=== PATIENT | female | born 1965 | race Caucasian/White ===

== ENCOUNTER 2017-05-18 13:46 | Inpatient (IN) | payer BC ==
--- NOTE | 2017-05-18 15:12 | ER Document Report ---
ED Medical Screen (RME) - General Chief Complaint: Abdominal Pain Stated Complaint: ABDOMINAL PAIN Time Seen by Provider: 05/18/17 15:06 Notes: Patient presents complaining of LLQ abdominal pain on Tuesday, cramping at the end of her cycle, constant. Gradually worse in severity and now including suprapubic area. Tuesday with cold symptoms, fever and abdominal pain started tuesday. LMP: this past week. regular. Denies using BC, has had a tubal ligation. still has her appendix. + nausea - vomiting, diarrhea, constipation LBM: today but less than normal PCP: Gina. I have greeted and performed a rapid initial assessment of this patient. A comprehensive ED assessment and evaluation of the patient, analysis of test results and completion of the medical decision making process will be conducted by additional ED providers. TRAVEL OUTSIDE OF THE [place] IN LAST 30 DAYS: No - Related Data Allergies/Adverse Reactions: No Known Allergies Allergy (Unverified 05/18/17 15:06) Physical Exam - Vital signs Vitals: Temp Pulse Resp BP Pulse Ox 101.4 F H 124 H 20 124/70 96 05/18/17 13:55 05/18/17 13:55 05/18/17 13:55 05/18/17 13:55 05/18/17 13:55 - Notes Notes: PHYSICAL EXAM GENERAL: Alert, interacts well. HEAD: Normocephalic, atraumatic. LUNGS: Clear to auscultation bilaterally, no wheezes, rales, or rhonchi. No respiratory distress. HEART: Regular rate and rhythm. No murmurs, gallops, or rubs. ABDOMEN: Soft, mildly distended, LLQ tenderess. No guarding, rebound, or rigidity.. Bowel sounds present in all 4 quadrants. EXTREMITIES: Moves all 4 extremities spontaneously. No edema, radial and dorsalis pedis pulses 2/4 bilaterally. No cyanosis. NEUROLOGICAL: Alert and oriented x4. Normal speech. PSYCH: Normal affect, normal mood. SKIN: Warm, dry, normal turgor. No rashes or lesions noted. Course - Vital Signs Vital signs: Temp Pulse Resp BP Pulse Ox 101.4 F H 124 H 20 124/70 96 05/18/17 13:55 05/18/17 13:55 05/18/17 13:55 05/18/17 13:55 05/18/17 13:55
[2017-05-18 15:48] LABS: HEMATOCRIT 34.4 % (36.0-47.0); HEMOGLOBIN 11.7 g/dL (12.0-15.5); MEAN CORPUSCULAR HGB CONC 33.9 g/dL (32.0-36.0); MEAN CORPUSCULAR VOLUME 86 fl (80-97); PLATELET COUNT 375 10^3/uL (150-450); RED BLOOD COUNT 4.02 10^6/uL (3.72-5.28); RED CELL DISTRIBUTION WIDTH 13.8 % (11.5-14.0); WHITE BLOOD COUNT 19.1 10^3/uL (4.0-10.5)
[2017-05-18 15:50] LABS: AMORPHOUS SEDIMENT,URINE TRACE /HPF; APPEARANCE,URINE SLIGHTLY-CLOUDY; BILIRUBIN,URINE NEGATIVE (NEGATIVE); COLOR,URINE YELLOW; GLUCOSE, URINE NEGATIVE (NEGATIVE); KETONES,URINE NEGATIVE (NEGATIVE); LEUKOCYTE ESTERASE,URINE MODERATE (NEGATIVE); NITRITE,URINE NEGATIVE (NEGATIVE); PROTEIN,URINE NEGATIVE (NEGATIVE); URINE SPECIFIC GRAVITY 1.002
--- NOTE | 2017-05-18 15:59 | RADIOLOGY REPORT (SQ) ---
EXAM DESCRIPTION: ACUTE ABDOMEN SERIES COMPLETED DATE/TIME: 05/18/2017 3:44 pm REASON FOR STUDY: abdominal pain and distension COMPARISON: None. NUMBER OF VIEWS: Three views. TECHNIQUE: Frontal chest, supine abdomen and upright abdomen radiographic images acquired. LIMITATIONS: None. FINDINGS: CHEST: Lungs clear of infiltrates. Cardiac silhouette size, shirley, bony structures unremar kable. FREE AIR: None. No abnormal gas collections. BOWEL GAS PATTERN: Nonobstructive bowel gas pattern. There is air and fluid in the colon. CALCIFICATIONS: Calcified pelvic phleboliths. HARDWARE: None in the abdomen. SOFT TISSUES: No gross mass or suggestion of organomegaly. BONES: No acute fracture. No worrisome bone lesions. OTHER: No other significant finding. IMPRESSION: NO RADIOGRAPHIC EVIDENCE FOR ACUTE ABDOMINAL DISEASE. TECHNICAL DOCUMENTATION: JOB ID: [id number] [employer]- All Rights Reserved
[2017-05-18 16:07] LABS: ALANINE AMINOTRANSFERASE 184 U/L (9-52); ALBUMIN 3.8 g/dL (3.5-5.0); ALKALINE PHOSPHATASE 188 U/L (38-126); ANION GAP 10 (5-19); ASPARTATE AMINO TRANSFERASE 114 U/L (14-36); BILIRUBIN,DIRECT 0.2 mg/dL (0.0-0.4); BILIRUBIN,TOTAL 0.4 mg/dL (0.2-1.3); BLOOD UREA NITROGEN 7 mg/dL (7-20); CALCIUM 9.7 mg/dL (8.4-10.2); CARBON DIOXIDE 28 mmol/L (22-30); CHLORIDE 101 mmol/L (98-107); GLUCOSE 115 mg/dL (75-110); LIPASE 32.5 U/L (23-300); POTASSIUM 3.9 mmol/L (3.6-5.0); SODIUM 138.6 mmol/L (137-145); TOTAL PROTEIN 6.3 g/dL (6.3-8.2)
[2017-05-18 16:11] LABS: ABSOLUTE LYMPHOCYTES# (MANUAL) 1.1 10^3/uL (0.5-4.7); ABSOLUTE MONOCYTES # (MANUAL) 0.8 10^3/uL (0.1-1.4); BASOPHILS % (MANUAL) 0 % (0-2); EOSINOPHILS % (MANUAL) 1 % (0-6); LYMPHOCYTES % (MANUAL) 6 % (13-45); MONOCYTES % (MANUAL) 4 % (3-13); SEGMENTED NEUTROPHILS % (MAN) 89 % (42-78); TOTAL CELLS COUNTED 100
[2017-05-18 16:12] LABS: PLATELET COMMENT ADEQUATE; TOXIC GRANULATION SLIGHT
--- NOTE | 2017-05-18 16:28 | ER Document Report ---
ED General <PRESTON RODAS - Last Filed: 05/19/17 08:53> - General TRAVEL OUTSIDE OF THE [place] IN LAST 30 DAYS: No <DAMION ESQUIVEL - Last Filed: 05/19/17 09:47> - General Chief Complaint: Abdominal Pain Stated Complaint: ABDOMINAL PAIN Time Seen by Provider: 05/18/17 15:06 Notes: Patient is a 51-year-old female presents emergency department with chief complaint of left lower quadrant abdominal pain with sudden onset 3 days ago. Patient states that initially felt like a initial pinprick sensation that has progressed to a constant dull ache with associated cramps. She states that it was in her left lower quadrant is now suprapubic and occasionally in her right lower quadrant. She denies any fever, chills. She admits to occasional nausea without any vomiting. She denies any pyuria, hematuria but admits to pressure with urination. She denies any vaginal discharge, pain with intercourse but also states that she has not had intercourse since the symptoms started. She states that she is on the tail end of her menstrual period. States that she is sexually active with her only, they do not use protection, she denies any concern for STDs. She denies any history of significant pelvic pathology such as endometriosis, PCOS , Diverticulitis, colitis, ulcerative colitis, IBS ROS significant for upper respiratory infection symptoms that started on Tuesday. She states that she has had mild low-grade fevers since then with the onset of abdominal pain this weekend. (DAMION ESQUIVEL) - Related Data Allergies/Adverse Reactions: No Known Allergies Allergy (Unverified 05/18/17 15:06) Past Medical History - Social History Smoking Status: Unknown if Ever Smoked <PRESTON RODAS - Last Filed: 05/19/17 08:53> - Social History Smoking Status: Never Smoker Chew tobacco use (# tins/day): No Frequency of alcohol use: None Drug Abuse: None Family History: Reviewed & Not Pertinent Patient has suicidal ideation: No Patient has homicidal ideation: No Renal/ Medical History: Denies: Hx Peritoneal Dialysis Past Surgical History: Reports: Hx Tubal Ligation <DAMION ESQUIVEL - Last Filed: 05/19/17 09:47> Review of Systems - Review of Systems Constitutional: See HPI Cardiovascular: No symptoms reported Respiratory: No symptoms reported Gastrointestinal: See HPI Genitourinary: See HPI Female Genitourinary: See HPI Musculoskeletal: No symptoms reported -: Yes All other systems reviewed and negative <DAMION ESQUIVEL - Last Filed: 05/19/17 09:47> Physical Exam <PRESTON RODAS - Last Filed: 05/19/17 08:53> <DAMION ESQUIVEL - Last Filed: 05/19/17 09:47> - Vital signs Vitals: Temp Pulse Resp BP Pulse Ox 101.4 F H 124 H 20 124/70 96 05/18/17 13:55 05/18/17 13:55 05/18/17 13:55 05/18/17 13:55 05/18/17 13:55 - Notes Notes: PHYSICAL EXAM GENERAL: Alert, interacts well. HEAD: Normocephalic, atraumatic. NECK: Full range of motion. Supple. Trachea midline. LUNGS: Clear to auscultation bilaterally, no wheezes, rales, or rhonchi. No respiratory distress. HEART: Regular rate and rhythm. No murmurs, gallops, or rubs. ABDOMEN: Soft, nondistended, nontender. No guarding, rebound, or rigidity.. Bowel sounds present in all 4 quadrants. FEMALE : Normal external exam. No evidence of lesions, lacerations, bruising or vesicles. Speculum exam normal cervix closed. No evidence of vaginal discharge with odor. No evidence of lesions. No vaginal bleeding. Bimanual exam with mild cervical motion tenderness. No adnexal mass or adnexal tenderness. EXTREMITIES: Moves all 4 extremities spontaneously. No edema, radial and dorsalis pedis pulses 2/4 bilaterally. No cyanosis. NEUROLOGICAL: Alert and oriented x4. Normal speech. PSYCH: Normal affect, normal mood. SKIN: Warm, dry, normal turgor. No rashes or lesions noted. (DAMION ESQUIVEL) Course - Laboratory Result Diagrams: 05/19/17 06:48 05/19/17 06:48 <PRESTON RODAS - Last Filed: 05/19/17 08:53> - Laboratory Result Diagrams: 05/19/17 06:48 05/19/17 06:48 - Diagnostic Test Radiology reviewed: Image reviewed, Reports reviewed <DAMION ESQUIVEL - Last Filed: 05/19/17 09:47> - Re-evaluation Re-evalutation: 05/19/17 08:54 Ultrasound results reviewed, labs and ultrasound and discussed with Dr. Reid who stated she would go over the ultrasound and CT and then call back because she did not believe that this was a pelvic infection she thought it was more of a intestinal infection. When she called back she stated that she and the surgeon had consulted and they would admit the patient started on antibiotics and then have the patient rescanned as she did not think this was a pelvic infection. Patient was admitted to second floor to Dr. Reid's services. Patient and were informed of this decision and they were accepted at this disposition. They stated they did not feel that she could go home feeling the way she did. (PRESTON RODAS) 05/18/17 16:30 Patient is a 51-year-old female who is hemodynamically stable, no acute distress and afebrile. Repeat temp down from initial taking triage. Heart rate initially responded well to IV bolus. Patient resting comfortably and only admits to pain with certain movements and palpation. White blood cell count elevated at 19,000. No evidence of UTI noted on urinalysis. Repeat abdominal exam still shows tenderness in the left lower quadrant will send for CT abdomen and pelvis with IV contrast. 05/18/17 17:45 CT does not show any evidence of diverticulitis, colitis. No evidence of appendicitis. Evidence of free fluid and inflammation around the broad ligament in the left adnexa. Correlated with physical exam with concern for PID. Wet mount and GC were sent. Patient will be sent for a transvaginal ultrasound to rule out for any tubo-ovarian abscess. 05/18/17 18:50 Patient still pending for ultrasound. Sign out to Lynda Rodas EMPLOYMENT OFFICE CLERK who will review ultrasound and dispel accordingly. Patient remains n.p.o. at this time and remaining comfortable. (DAMION ESQUIVEL) - Vital Signs Vital signs: Temp Pulse Resp BP Pulse Ox 98.9 F 102 H 18 122/70 98 05/19/17 08:29 05/19/17 08:29 05/19/17 08:29 05/19/17 08:29 05/19/17 08:29 - Laboratory Laboratory results interpreted by me: 05/18/17 05/18/17 05/18/17 15:30 15:30 15:30 WBC 19.1 H Hgb 11.7 L Hct 34.4 L Seg Neuts % (Manual) 89 H Lymphocytes % (Manual) 6 L Abs Neuts (Manual) 17.0 H Glucose 115 H AST 114 H ALT 184 H Alkaline Phosphatase 188 H Urine Blood SMALL H Urine Urobilinogen 2.0 H Ur Leukocyte Esterase MODERATE H Discharge - Discharge Admitting Provider: [facility] Admitted: Post <PRESTON RODAS - Last Filed: 05/19/17 08:53> <DAMION ESQUIVEL - Last Filed: 05/19/17 09:47> - Discharge Clinical Impression: Pelvic pain Fever Qualifiers: Fever type: unspecified Qualified Code(s): R50.9 - Fever, unspecified Disposition: ADMITTED INPATIENT
[2017-05-18] MEDS: NORMAL SALINE 1000 ML 1,000 ML IV PRN ×3 (17:20→23:17)
--- NOTE | 2017-05-18 17:22 | RADIOLOGY REPORT (SQ) ---
EXAM DESCRIPTION: CT ABD/PELVIS WITH IV ONLY COMPLETED DATE/TIME: 05/18/2017 5:02 pm REASON FOR STUDY: LLQ pain, fever, elevated WBC COMPARISON: None. TECHNIQUE: CT scan of the abdomen and pelvis performed using helical scanning technique with dynamic intravenous contrast injection. No oral contrast. Images reviewed with lung, soft tissue, and bone windows. Reconstructed coronal and sagittal MPR images reviewed. Delayed images for evaluation of the urinary system also acquired. All images stored on PACS. All CT scanners at this facility use dose modulation, iterative reconstruction, and/or weight based d osing when appropriate to reduce radiation dose to as low as reasonably achievable (ALARA). [facility]: Dose Right [facility]: CareDose [facility]: Dose Right [facility]: Teradose 4D [facility]: Tallyfy CONTRAST TYPE AND DOSE: contrast/concentration: Isovue 370.00 mg/ml; Total Contrast Delivered: 72.0 ml; Total Saline Delivered: 36.0 ml RENAL FUNCTION: Creatinine 0.73 RADIATION DOSE: CT Rad equipment meets quality standard of care and radiation dose reduction techniq ues were employed. CTDIvol: 6.1 - 8.4 mGy. DLP: 716 mGy-cm.. LIMITATIONS: None. FINDINGS: LOWER CHEST: No significant findings. No nodules or infiltrates. LIVER: Normal size. No masses. No dilated ducts. SPLEEN: Normal size. No focal lesions. PANCREAS: No masses. No significant calcifications. No adjacent inflammation or peripancreatic fluid collections. Pancreatic duct not dilated. GALLBLADDER: No identified stones by CT criteria. No inflammatory changes to suggest cholecystitis. ADRENAL GLANDS: No significant masses or asymmetry. RIGHT KIDNEY AND URETER: No solid masses. No significant calcifications. No hydronephrosis or hyd roureter. LEFT KIDNEY AND URETER: No solid masses. No significant calcifications. No hydronephrosis or hydr oureter. AORTA AND VESSELS: No aneurysm. No dissection. Renal arteries, SMA, celiac without stenosis. RETROPERITONEUM: No retroperitoneal adenopathy, hemorrhage or masses. BOWEL AND PERITONEAL CAVITY: No masses or inflammatory changes. No free fluid or peritoneal masses. APPENDIX: Normal. PELVIS: There are edematous or inflammatory changes adjacent to the broad ligament on the left. Poss ibility of PID should be considered in light of the negative HCG. Other etiologies including endomet riosis cannot be excluded. A small amount of free fluid is identified in the cul-de-sac. Pelvic ult rasound may be of value for further evaluation. ABDOMINAL WALL: No masses. No hernias. BONES: No significant or acute findings. OTHER: No other significant finding. IMPRESSION: There are edematous or inflammatory changes adjacent to the broad ligament on the left a s noted above. The possibility of PID should be considered in light of the negative HCG. Other etio logies including endometriosis cannot be excluded. Small amount of free fluid is identified in the c ul-de-sac. Clinical correlation is recommended. Pelvic ultrasound may be of value for further evalu ation. Other findings as noted above TECHNICAL DOCUMENTATION: JOB ID: [id number] Quality ID # [id number]: Final reports with documentation of one or more dose reduction techniques (e.g., Au tomated exposure control, adjustment of the mA and/or kV according to patient size, use of iterative reconstruction technique) 2010 [employer]- All Rights Reserved
[2017-05-18 18:16] LABS: RBCS (WET MOUNT) RARE RBCS SEEN; T.VAGINALIS (WET MOUNT) NO TRICHOMONAS SEEN; WBCS (WET MOUNT) 2+ WBCS SEEN; YEAST (WET MOUNT) NO YEAST SEEN
[2017-05-18 18:17] LABS: BACTERIA (WET MOUNT) 3+ BACTERIA SEEN
[2017-05-18] MEDS ORDERED: NORMAL SALINE 1000 ML 1,000 ML IV ONE (18:51)
[2017-05-18] MEDS ORDERED: KETOROLAC TROMETHAMINE INJ/PF 30 MG/1 ML SDV IV ONE (18:51)
[2017-05-18 19:49] LABS: CHLAM PCR NOT DETECTED (NOT DETECT); GON PCR NOT DETECTED (NOT DETECT)
--- NOTE | 2017-05-18 19:50 | RADIOLOGY REPORT (SQ) ---
EXAM DESCRIPTION: U/S NON OB PEL TV W/DOPPLER COMPLETED DATE/TIME: 05/18/2017 7:36 pm REASON FOR STUDY: left adenexa pain, elevated WBC COMPARISON: None. TECHNIQUE: Dynamic and static grayscale images acquired of the pelvis via transvaginal approach and recorded on PACS. Additional selected color Doppler and spectral images recorded. LIMITATIONS: None. FINDINGS: UTERUS: Contour normal. No mass. ENDOMETRIAL STRIPE: No focal or generalized thickening. No masses. CERVIX: No nabothian cysts. RIGHT OVARY: Ovary not visualized. RIGHT OVARY DOPPLER: Ovary not visualized. LEFT OVARY: Ovary not visualized. LEFT OVARY DOPPLER: Ovary not visualized. FREE FLUID: Free fluid with septations in the left adnexa. OTHER: No other significant finding. MEASUREMENTS: UTERUS: 8.5 x 5.0 x 6.1 cm ENDOMETRIAL STRIPE: 3.5 mm RIGHT OVARY: Not visualized. LEFT OVARY: Not visualized. IMPRESSION: Inflammatory changes in the left adnexa. Main differentials are pelvic inflammatory dis ease, much less likely inflammation associated with gynecologic malignancy. TECHNICAL DOCUMENTATION: JOB ID: [id number]- All Rights Reserved
[2017-05-18] MEDS ORDERED: CEFTRIAXONE 1 GM/D5W RTU 1 GM/50 ML RTUPB IV ONE (20:26)
--- NOTE | 2017-05-18 21:05 | RADIOLOGY REPORT (SQ) ---
EXAM DESCRIPTION: CHEST PA/LAT COMPLETED DATE/TIME: 05/18/2017 8:41 pm REASON FOR STUDY: cough fever COMPARISON: None. EXAM PARAMETERS: NUMBER OF VIEWS: two views TECHNIQUE: Digital Frontal and Lateral radiographic views of the chest acquired. RADIATION DOSE: NA LIMITATIONS: none FINDINGS: LUNGS AND PLEURA: No opacities, masses or pneumothorax. No pleural effusion. MEDIASTINUM AND HILAR STRUCTURES: No masses or contour abnormalities. HEART AND VASCULAR STRUCTURES: Heart normal size. No evidence for failure. BONES: No acute findings. HARDWARE: None in the chest. OTHER: No other significant finding. IMPRESSION: NO SIGNIFICANT RADIOGRAPHIC FINDING IN THE CHEST. TECHNICAL DOCUMENTATION: JOB ID: [id number] [employer]- All Rights Reserved
[2017-05-18] MEDS ORDERED: ONDANSETRON 4 MG TAB.RAPDIS PO PRN (21:23)
[2017-05-18] MEDS ORDERED: ZOLPIDEM TARTRATE 5 MG TABLET PO PRN (21:23)
[2017-05-18] MEDS ORDERED: MAG HYDROX/AL HYDROX/SIMETH SUSP 30 ML UDCUP PO PRN (21:23)
[2017-05-18] MEDS ORDERED: CEFTRIAXONE SODIUM 1,000 MG in NORMAL SALINE 50 ML IV ONE (21:30)
[2017-05-18] MEDS: RINGERS SOLUTION,LACTATED 1,000 ML IV PRN (23:34)
[2017-05-19] MEDS ORDERED: PIPERACILLIN/TAZOBACTAM 3.375 GM VIAL IV SCH
[2017-05-19] MEDS: PIPERACILLIN SODIUM/TAZOBACTAM 3.375 GM in NORMAL SALINE 100 ML IV SCH ×4 (00:23→17:20)
[2017-05-19] MEDS: RINGERS SOLUTION,LACTATED 1,000 ML IV PRN ×3 (00:25→21:16)
[2017-05-19] MEDS ORDERED: INFLUENZA ADLT QUAD (36MOS+) 2017-18 VAC 0.5 ML SYR IM PRN (00:59)
[2017-05-19] MEDS ORDERED: OXYCODONE-ACETAMINOPHEN 5-325 MG TABLET PO PRN ×2 (04:57)
[2017-05-19] MEDS ORDERED: ACETAMINOPHEN 325 MG TABLET PO PRN (04:58)
[2017-05-19] MEDS ORDERED: IBUPROFEN 800 MG TABLET PO PRN (04:58)
[2017-05-19] MEDS ORDERED: ACETAMINOPHEN 325 MG TABLET ONE (05:03)
--- NOTE | 2017-05-19 06:17 | PDOC H&P ---
History of Present Illness Admission Date/PCP: 05/18/17 22:19 ANA GONZALEZ MD Patient complains of: Lower abdominal pain, fever History of Present Illness: MILO CASTRO 51-year-old female presented to the ER with chief complaint of left lower quadrant abdominal pain with sudden onset 3 days ago. Patient states that initially felt like a initial pinprick sensation that has progressed to a constant dull ache with associated cramps and extends from LLQ across her lower pelvis to the right. She denies any fever, chills but was noted to be febrile in the ER. She admits to occasional nausea without any vomiting. She has had one episode of diarrhea. She denies BRBPR. She denies any pyuria, hematuria but admits to pressure with urination. She denies any vaginal discharge, pain with intercourse but also states that she has not had intercourse since the symptoms started. She states that she just finished her menstrual period. States that she is sexually active with her only, they do not use protection, she denies any concern for STDs. She denies non vaginal intercourse. She denies any history of significant pelvic pathology such as endometriosis, PCOS , Diverticulitis, colitis, ulcerative colitis, IBS. ROS significant for upper respiratory infection symptoms that started on Tuesday. She states that she has had mild low-grade fevers since then with the onset of abdominal pain this weekend. Past Medical History Gynecological Infection: No 1 Delivery: Other - poss extopic pregnany. Told she was "minutes and a blood vessel burst" Past Surgical History Past Surgical History: Reports: Tubal Ligation, Other - surgery for ectopic ("minutes with burst blood vessel") Social History Information Source: Patient Lives with: Family Smoking Status: Never Smoker Frequency of Alcohol Use: Rare Hx Recreational Drug Use: No Drugs: None Hx Prescription Drug Abuse: No - Advance Directive Resuscitation Status: Full Code Family History Family History: Reviewed & Not Pertinent Parental Family History Reviewed: No Children Family History Reviewed: NA Sibling(s) Family History Reviewed.: NA Medication/Allergy Home Medications: No Home Medications 05/19/17 Allergies/Adverse Reactions: No Known Allergies Allergy (Unverified 05/18/17 15:06) Review of Systems Constitutional: ABSENT: chills, fatigue, fever(s), weakness, weight gain, weight loss Gastrointestinal: PRESENT: abdominal pain, bloating, diarrhea, nausea. ABSENT: coffee ground emesis, constipation, heartburn, hematemesis, hematochezia, vomiting Genitourinary: ABSENT: dysuria, hematuria Musculoskeletal: ABSENT: joint swelling Integumentary: ABSENT: rash, wounds Neurological: ABSENT: abnormal gait, abnormal speech, confusion, dizziness, focal weakness, syncope Psychiatric: ABSENT: anxiety, depression, homidical ideation, suicidal ideation Endocrine: ABSENT: cold intolerance, heat intolerance, polydipsia, polyuria Hematologic/Lymphatic: ABSENT: easy bleeding, easy bruising Physical Exam - Physical Exam Vital Signs: Temp Pulse Resp BP Pulse Ox 101.4 F H 124 H 20 124/70 96 05/18/17 13:55 05/18/17 13:55 05/18/17 13:55 05/18/17 13:55 05/18/17 13:55 General appearance: PRESENT: no acute distress, cooperative Head exam: PRESENT: atraumatic, normocephalic Respiratory exam: PRESENT: clear to auscultation mirian, symmetrical, unlabored Cardiovascular exam: PRESENT: +S1, +S2, tachycardia Pulses: PRESENT: normal dorsalis pedis pul, +2 pedal pulses bilateral Vascular exam: PRESENT: normal capillary refill GI/Abdominal exam: PRESENT: guarding, normal bowel sounds, soft, tenderness - LLQ greater than right. Also ttp bilateral upper quadrants. ABSENT: distended , mass, organolmegaly, rebound Rectal exam: PRESENT: deferred Extremities exam: PRESENT: full ROM. ABSENT: calf tenderness, clubbing, pedal edema Neurological exam: PRESENT: alert, awake, oriented to person, oriented to place , oriented to time, oriented to situation, CN II-XII grossly intact. ABSENT: motor sensory deficit Psychiatric exam: PRESENT: appropriate affect, normal mood. ABSENT: homicidal ideation, suicidal ideation Skin exam: PRESENT: dry, intact, warm. ABSENT: cyanosis, rash Result Impressions: Acute Abdomen Series 05/18/17 15:18 IMPRESSION: NO RADIOGRAPHIC EVIDENCE FOR ACUTE ABDOMINAL DISEASE. Abdomen/Pelvis CT 05/18/17 16:27 IMPRESSION: There are edematous or inflammatory changes adjacent to the broad ligament on the left as noted above. The possibility of PID should be considered in light of the negative HCG. Other etiologies including endometriosis cannot be excluded. Small amount of free fluid is identified in the cul-de-sac. Clinical correlation is recommended. Pelvic ultrasound may be of value for further evaluation. Other findings as noted above Transvaginal US 05/18/17 17:49 IMPRESSION: Inflammatory changes in the left adnexa. Main differentials are pelvic inflammatory disease, much less likely inflammation associated with gynecologic malignancy. Chest X-Ray 05/18/17 20:30 IMPRESSION: NO SIGNIFICANT RADIOGRAPHIC FINDING IN THE CHEST. Status: Image reviewed by me Assessment & Plan - Diagnosis (1) Pelvic pain Is this a current diagnosis for this admission?: Yes Plan: Fluid collection in left adnexa with septations with unclear etiology. Suspect at this time that some sort of inflammatory process is occuring based on Inc WBC, left shift, temp and tachycardia. Unsure if [employer] or GI etiology at this time. Surgicalist consulted as well. Will begin with broad spectrum coverage - Zosyn which should cover other possible etiologies such as diverticulits etc. Pt has surgical h/o ectopic and BTL - could be loculated fluid collection caused by adhesions. Does not appear to come from uterus or ovaries. Could also be distended fallopian tube. Reviewed other causes with patient such as possible neoplasm (benign, malignant ) - but would not cause fever, tachycardia or inc WBC. Reviewed with patient that would not recommend surgery at this time from [employer] standpoint. Recommend antibiotics to calm down inflammatory process and then repeat imaging in greater than 72 hours (if improves could be done as an outpatient). If patient suddenly worsens or uncontrolled pain then may need to perform surgery at that time. Reviewed could perform tumor markers but CA125 would be elevated anyway in the presence of current inflammatory process so will defer until inflammatory process is resolve. Repeat labs in am. Patient states that after beginning antibiotics her pain has improved. Pt is not yet menopausal (likely perimenopausal), is in a monogamous relationship, does not participate in nonvaginal intercourse, has a BTL, has negative GC/CT which makes PID unlikely. (2) Fever Qualifiers: Fever type: unspecified Qualified Code(s): R50.9 - Fever, unspecified Is this a current diagnosis for this admission?: Yes Plan: Antipyretics Zosyn Q 6 hours. Repeat labs in am Monitor (3) Tachycardia Is this a current diagnosis for this admission?: Yes Plan: IVF Antipyretics If persists despite afebrile will consult Hospitalist. - Time Time Spent: 30 to 50 Minutes Medications reviewed and adjusted accordingly: Yes Anticipated discharge: Home Within: within 72 hours - Inpatient Certification Based on my medical assessment, after consideration of the patient's comorbidities, presenting symptoms, or acuity I expect that the services needed warrant INPATIENT care.: Yes I certify that my determination is in accordance with my understanding of Medicare's requirements for reasonable and necessary INPATIENT services [42 CFR 412.3e].: Yes Medical Necessity: Need For IV Fluids, Need for Pain Control, Need for IV Antibiotics, Risk of Diagnosis Which Will Require Inpatient Eval/Care/Monitoring Post Hospital Care: D/C Engineering And Scientific Programmer Documentation
[2017-05-19 07:25] LABS: HEMATOCRIT 26.8 % (36.0-47.0); MEAN CORPUSCULAR HEMOGLOBIN 28.7 pg (27.0-33.4); MEAN CORPUSCULAR HGB CONC 33.7 g/dL (32.0-36.0); MEAN CORPUSCULAR VOLUME 85 fl (80-97); PLATELET COUNT 311 10^3/uL (150-450); RED BLOOD COUNT 3.15 10^6/uL (3.72-5.28); RED CELL DISTRIBUTION WIDTH 14.1 % (11.5-14.0); WHITE BLOOD COUNT 16.6 10^3/uL (4.0-10.5)
--- NOTE | 2017-05-19 07:35 | PDOC CONSULTATION ---
Consultation Consult Date: 05/18/17 Attending physician:: Geri Brock Consult reason:: Left lower quadrant abdominal pain x 3 days History of Present Illness Admission Date/PCP: 05/18/17 22:19 ANA GONZALEZ MD History of Present Illness: Mrs Lebron is a 51 yr old female admitted to [facility] with a left adnexal inflammatory process. The pain started like a pinprick and then became crampy ' like menstrual cramps'. It was deep down low in the left lower quadrant but by the next day had spread to the entire suprapubic region and was now a dull ache. She had some nausea only after taking medications for pain, no vomiting. She also felt bloated. She denied any fever at home but had some fever documented in the ER. She has never had diverticulitis, has never had a colonoscopy but is scheduled for one in the next month. A CT abdomen/pelvis done in the ER did not show any evidence of diverticulitis but did show a left adnexal inflammtory process as did a transvaginal ultrasound. A surgical consult was placed to rule-out a general surgical pathology. Past Surgical History Past Surgical History: Reports: Tubal Ligation, Other - surgery for ectopic ("minutes with burst blood vessel") Social History Lives with: Family Smoking Status: Never Smoker Frequency of Alcohol Use: Rare Hx Recreational Drug Use: No Drugs: None Hx Prescription Drug Abuse: No - Advance Directive Resuscitation Status: Full Code Family History Family History: Reviewed & Not Pertinent Parental Family History Reviewed: No Children Family History Reviewed: Unknown Sibling(s) Family History Reviewed.: Unknown Medication/Allergy Home Medications: No Home Medications 05/19/17 Allergies/Adverse Reactions: No Known Allergies Allergy (Unverified 05/18/17 15:06) Review of Systems Constitutional: PRESENT: fever(s) Eyes: ABSENT: visual disturbances Ears: ABSENT: hearing changes Cardiovascular: ABSENT: chest pain, dyspnea on exertion, edema, orthropnea, palpitations Respiratory: ABSENT: cough, hemoptysis Gastrointestinal: PRESENT: as per HPI Genitourinary: ABSENT: dysuria, hematuria Musculoskeletal: ABSENT: joint swelling Integumentary: ABSENT: rash, wounds Neurological: ABSENT: abnormal gait, abnormal speech, confusion, dizziness, focal weakness, syncope Psychiatric: ABSENT: anxiety, depression, homidical ideation, suicidal ideation Endocrine: ABSENT: cold intolerance, heat intolerance, polydipsia, polyuria Hematologic/Lymphatic: ABSENT: easy bleeding, easy bruising Physical Exam Vital Signs: Temp Pulse Resp BP Pulse Ox 102 F H 118 H 20 127/63 H 97 05/19/17 04:00 05/19/17 04:00 05/19/17 04:00 05/19/17 04:00 05/19/17 04:00 Intake & Output 05/18/17 05/19/17 05/20/17 06:59 06:59 06:59 Intake Total 900 Output Total 200 Balance 700 Weight 70.9 kg General appearance: PRESENT: no acute distress, well-developed, well-nourished Head exam: PRESENT: atraumatic, normocephalic Eye exam: PRESENT: conjunctiva pink, EOMI, PERRLA. ABSENT: scleral icterus Ear exam: PRESENT: normal external ear exam Neck exam: ABSENT: carotid bruit, JVD, lymphadenopathy, thyromegaly Respiratory exam: PRESENT: clear to auscultation mirian. ABSENT: rales, rhonchi, wheezes Cardiovascular exam: PRESENT: RRR. ABSENT: diastolic murmur, rubs, systolic murmur GI/Abdominal exam: PRESENT: normal bowel sounds, soft, other - Obese, protruberant abdomen. 7cm Midline suprapubic surgical scar. very mild tenderness to palpation in the left lower quadrant, no guarding, rigidity or rebound tenderness. Musculoskeletal exam: PRESENT: ambulatory, full ROM, normal inspection Neurological exam: PRESENT: alert, awake, oriented to person, oriented to place , oriented to time, oriented to situation, CN II-XII grossly intact. ABSENT: motor sensory deficit Psychiatric exam: PRESENT: appropriate affect, normal mood. ABSENT: homicidal ideation, suicidal ideation Skin exam: PRESENT: dry, intact, warm. ABSENT: cyanosis, rash Results Impressions: Acute Abdomen Series 05/18/17 15:18 IMPRESSION: NO RADIOGRAPHIC EVIDENCE FOR ACUTE ABDOMINAL DISEASE. Abdomen/Pelvis CT 05/18/17 16:27 IMPRESSION: There are edematous or inflammatory changes adjacent to the broad ligament on the left as noted above. The possibility of PID should be considered in light of the negative HCG. Other etiologies including endometriosis cannot be excluded. Small amount of free fluid is identified in the cul-de-sac. Clinical correlation is recommended. Pelvic ultrasound may be of value for further evaluation. Other findings as noted above Transvaginal US 05/18/17 17:49 IMPRESSION: Inflammatory changes in the left adnexa. Main differentials are pelvic inflammatory disease, much less likely inflammation associated with gynecologic malignancy. Chest X-Ray 05/18/17 20:30 IMPRESSION: NO SIGNIFICANT RADIOGRAPHIC FINDING IN THE CHEST. Assessment & Plan - Diagnosis (2) Pelvic pain Is this a current diagnosis for this admission?: Yes (3) Fever Qualifiers: Fever type: unspecified Qualified Code(s): R50.9 - Fever, unspecified Is this a current diagnosis for this admission?: Yes - Plan Summary Plan Summary: Her history and physical examination are not consistent with diverticulitis which would be the general surgical pathological process of concern with left lower quadrant abdominal pain - the pain she vividly describes as menstrual cramp-type pain; she does not exhibit such tenderness in the location in the left lower quadrant that a patient with such inflammation, as shown on the CT, from diverticulitis would have. Also I personally reviewed the CT and agree with the radiologist report - the sigmoid colon is displaced to the right by the uterus and the left adnexal pathology, I do not see any diverticuli in the colon and no colonic wall thickening or pericolonic stranding to suggest colonic inflammation. Thank you for involving us in the care of this patient, if you need any more general surgical input please feel free to reconsult, we will sign off the case at this time.
[2017-05-19 07:38] LABS: ANION GAP 11 (5-19); BLOOD UREA NITROGEN 8 mg/dL (7-20); CALCIUM 8.6 mg/dL (8.4-10.2); CARBON DIOXIDE 21 mmol/L (22-30); CHLORIDE 109 mmol/L (98-107); GLUCOSE 138 mg/dL (75-110); POTASSIUM 3.7 mmol/L (3.6-5.0); SODIUM 140.5 mmol/L (137-145)
[2017-05-19] MEDS: METRONIDAZOLE 500 MG/NS RTU 100 ML IV SCH ×3 (08:35→21:15)
[2017-05-19] MEDS ORDERED: DOXYCYCLINE HYCLATE INJ 100 MG VIAL IV SCH (10:00)
[2017-05-19] MEDS ORDERED: PROMETHAZINE HCL 25 MG TABLET PO PRN (10:18)
[2017-05-19] MEDS: IBUPROFEN 800 MG TABLET PO SCH ×2 (10:30→17:19)
[2017-05-19] MEDS: DOXYCYCLINE HYCLATE 100 MG in DEXTROSE 5%-WATER 250 ML IV SCH ×2 (10:42→21:25)
[2017-05-19] MEDS: DOCUSATE SODIUM 100 MG CAPSULE PO SCH (10:45)
--- NOTE | 2017-05-19 12:03 | PDOC PROGRESS REPORT ---
Subjective Progress Note for:: 05/19/17 Subjective:: feeling little better this AM. Some nausea and lack of appetite. No emesis Reason For Visit: PAIN IN PELVIS,FEVER Physical Exam - Physical Exam Vital Signs: Temp Pulse Resp BP Pulse Ox 98.9 F 102 H 18 122/70 98 05/19/17 08:29 05/19/17 08:29 05/19/17 08:29 05/19/17 08:29 05/19/17 08:29 Intake & Output 05/18/17 05/19/17 05/20/17 06:59 06:59 06:59 Intake Total 900 Output Total 200 Balance 700 Weight 70.9 kg General appearance: PRESENT: no acute distress, cooperative GI/Abdominal exam: PRESENT: soft, tenderness - mild tenderness in left adnexal area Result Laboratory Results: 05/19/17 06:48 05/19/17 06:48 05/19/17 05/19/17 05/19/17 06:48 06:48 06:48 WBC 16.6 H RBC 3.15 L Hgb 9.0 L D Hct 26.8 L MCV 85 MCH 28.7 MCHC 33.7 RDW 14.1 H Plt Count 311 Sodium 140.5 Potassium 3.7 Chloride 109 H Carbon Dioxide 21 L Anion Gap 11 BUN 8 Creatinine 0.72 Est GFR ( Amer) > 60 Est GFR (Non-Af Amer) > 60 Glucose 138 H Lactic Acid 1.0 Calcium 8.6 Impressions: Acute Abdomen Series 05/18/17 15:18 IMPRESSION: NO RADIOGRAPHIC EVIDENCE FOR ACUTE ABDOMINAL DISEASE. Abdomen/Pelvis CT 05/18/17 16:27 IMPRESSION: There are edematous or inflammatory changes adjacent to the broad ligament on the left as noted above. The possibility of PID should be considered in light of the negative HCG. Other etiologies including endometriosis cannot be excluded. Small amount of free fluid is identified in the cul-de-sac. Clinical correlation is recommended. Pelvic ultrasound may be of value for further evaluation. Other findings as noted above Transvaginal US 05/18/17 17:49 IMPRESSION: Inflammatory changes in the left adnexa. Main differentials are pelvic inflammatory disease, much less likely inflammation associated with gynecologic malignancy. Chest X-Ray 05/18/17 20:30 IMPRESSION: NO SIGNIFICANT RADIOGRAPHIC FINDING IN THE CHEST. Assessment & Plan - Diagnosis (1) Abdominal pain, left lower quadrant Is this a current diagnosis for this admission?: Yes (2) Fever Qualifiers: Fever type: unspecified Qualified Code(s): R50.9 - Fever, unspecified Is this a current diagnosis for this admission?: Yes (3) Pelvic pain Is this a current diagnosis for this admission?: Yes (4) Tachycardia Is this a current diagnosis for this admission?: Yes - Time Time Spent with patient: Less than 15 minutes Within: within 48 hours - Inpatient Certification Based on my medical assessment, after consideration of the patient's comorbidities, presenting symptoms, or acuity I expect that the services needed warrant INPATIENT care.: Yes I certify that my determination is in accordance with my understanding of Medicare's requirements for reasonable and necessary INPATIENT services [42 CFR 412.3e].: Yes Medical Necessity: Need Close Monitoring Due to Risk of Patient Decompensation, Need for Pain Control, Need for IV Antibiotics - Plan Summary Plan Summary: have added Doxycycline and Flagyl for broader coverage. Will continue with antibiotics and will recheck CBC in AM to assess WBC and shift. D/W pt and family that would discharge home when afebrile x 24 hours and decreasing WBC. May need interval diagnostic laparoscope but prefer not to have surgery during period of inflammation unless emergent. Voices understanding.
[2017-05-20] MEDS: PIPERACILLIN SODIUM/TAZOBACTAM 3.375 GM in NORMAL SALINE 100 ML IV SCH ×3 (00:27→12:57)
[2017-05-20] MEDS: IBUPROFEN 800 MG TABLET PO SCH ×2 (01:38→10:28)
[2017-05-20] MEDS: METRONIDAZOLE 500 MG/NS RTU 100 ML IV SCH ×2 (03:02→08:47)
[2017-05-20 08:06] LABS: MEAN CORPUSCULAR VOLUME 86 fl (80-97); RED BLOOD COUNT 3.96 10^6/uL (3.72-5.28)
[2017-05-20 08:20] LABS: HEMATOCRIT 34.3 % (36.0-47.0); MEAN CORPUSCULAR HEMOGLOBIN 28.4 pg (27.0-33.4); MEAN CORPUSCULAR HGB CONC 32.8 g/dL (32.0-36.0); PLATELET COUNT 393 10^3/uL (150-450); RED CELL DISTRIBUTION WIDTH 14.3 % (11.5-14.0)
[2017-05-20 08:21] LABS: HEMOGLOBIN 11.2 g/dL (12.0-15.5)
[2017-05-20 08:42] LABS: ABSOLUTE LYMPHOCYTES# (MANUAL) 1.6 10^3/uL (0.5-4.7); ABSOLUTE MONOCYTES # (MANUAL) 0.4 10^3/uL (0.1-1.4); ABSOLUTE NEUTROPHILS# (MANUAL) 17.6 10^3/uL (1.7-8.2); BASOPHILS % (MANUAL) 0 % (0-2); EOSINOPHILS % (MANUAL) 2 % (0-6); LYMPHOCYTES % (MANUAL) 8 % (13-45); MONOCYTES % (MANUAL) 2 % (3-13); SEGMENTED NEUTROPHILS % (MAN) 88 % (42-78); TOTAL CELLS COUNTED 100
[2017-05-20 08:43] LABS: ANISOCYTOSIS SLIGHT; OVALOCYTES SLIGHT; PLATELET COMMENT ADEQUATE; POIKILOCYTOSIS SLIGHT; POLYCHROMASIA SLIGHT; TOXIC GRANULATION 1+
[2017-05-20] MEDS: DOXYCYCLINE HYCLATE 100 MG in DEXTROSE 5%-WATER 250 ML IV SCH (10:29)
[2017-05-20] MEDS: DOCUSATE SODIUM 100 MG CAPSULE PO SCH (10:31)
[2017-05-20] MEDS: RINGERS SOLUTION,LACTATED 1,000 ML IV PRN (12:58)
--- NOTE | 2017-05-20 13:22 | PDOC DISCHARGE SUMMARY ---
General - Admit/Disc Date/PCP Admission Date/Primary Care Provider: 05/18/17 22:19 ANA GONZALEZ MD Discharge Date: 05/20/17 - Discharge Diagnosis (1) Abdominal pain, left lower quadrant Is this a current diagnosis for this admission?: Yes Summary: She appears to have an infected fluid collection in the left pelvis possibly PID or TOA. - Additional Information Resuscitation Status: Full Code Home Medications: No Home Medications 05/19/17 History of Present Illness History of Present Illness: MILO CASTRO is a 51 year old female Hospital Course Hospital Course: She has been admitted and is not improving on antibiotics at this time. She may need surgical intervention. Physical Exam - Physical Exam Vital Signs: Temp Pulse Resp BP Pulse Ox 97.5 F 92 20 120/67 99 05/20/17 08:53 05/20/17 08:53 05/20/17 08:53 05/20/17 08:53 05/20/17 08:53 Intake & Output 05/19/17 05/20/17 05/21/17 06:59 06:59 06:59 Intake Total 900 1440 1250 Output Total 200 1000 Balance 836 226 4139 Weight 70.9 kg 70.8 kg General appearance: PRESENT: no acute distress, well-developed, well-nourished Head exam: PRESENT: atraumatic - Her abdomen is getting distended possible ileus., normocephalic Result Laboratory Results: 05/20/17 07:52 05/19/17 06:48 05/20/17 07:52 WBC 20.0 H RBC 3.96 Hgb 11.2 L D Hct 34.3 L MCV 86 MCH 28.4 MCHC 32.8 RDW 14.3 H Plt Count 393 Seg Neutrophils % Not Reportable Lymphocytes % Not Reportable Monocytes % Not Reportable Eosinophils % Not Reportable Basophils % Not Reportable Absolute Neutrophils Not Reportable Absolute Lymphocytes Not Reportable Absolute Monocytes Not Reportable Absolute Eosinophils Not Reportable Absolute Basophils Not Reportable Impressions: Acute Abdomen Series 05/18/17 15:18 IMPRESSION: NO RADIOGRAPHIC EVIDENCE FOR ACUTE ABDOMINAL DISEASE. Abdomen/Pelvis CT 05/18/17 16:27 IMPRESSION: There are edematous or inflammatory changes adjacent to the broad ligament on the left as noted above. The possibility of PID should be considered in light of the negative HCG. Other etiologies including endometriosis cannot be excluded. Small amount of free fluid is identified in the cul-de-sac. Clinical correlation is recommended. Pelvic ultrasound may be of value for further evaluation. Other findings as noted above Transvaginal US 05/18/17 17:49 IMPRESSION: Inflammatory changes in the left adnexa. Main differentials are pelvic inflammatory disease, much less likely inflammation associated with gynecologic malignancy. Chest X-Ray 05/18/17 20:30 IMPRESSION: NO SIGNIFICANT RADIOGRAPHIC FINDING IN THE CHEST. Plan Discharge Plan: Plan transfer to [facility] as she is not improving on the current antibiotics. The benefits will be a higher level of surgical specialties if needed including urology and obstetrics/gynecology nurse onc. Time Spent: Greater than 30 Minutes
[2017-05-20 14:41] VITALS: BP 119/71
== END 2017-05-20 16:09 | disposition short-term general hospital (02) | DRG 759 ==
LOC: ER 13:46 → EH 22:19 → INTOOBSV 22:19 → OBSVTOIN 22:19 → 2S 05-19 00:08
PROVIDERS: ADMIT Student in an Organized Health Care Education/Training Program; ATTEND Student in an Organized Health Care Education/Training Program
DX: N73.9 Female pelvic inflammatory disease, unspecified (principal); N70.93 Salpingitis and oophoritis, unspecified; R00.0 Tachycardia, unspecified; R50.9 Fever, unspecified; Z98.51 Tubal ligation status
CPT/HCPCS: 36415; 71046; 74022; 74177; 76830; 80048; 80053; 81001; 81025; 83605; 83690; 85025; 85027; 87040; 87210; 87491; 87591; 93976; 96361; 96374; 99285; J1885; J2543; J3490; J7030; J7060; J7120; S0119

== ENCOUNTER 2017-05-24 22:47 | Emergency (ER) | payer BC ==
[2017-05-25] MEDS ORDERED: ONDANSETRON ODT 4 MG TAB (6 TAB/ER DISP) PO PRN (00:09)
--- NOTE | 2017-05-25 00:09 | ER Document Report ---
ED General - General Chief Complaint: Possible allergic reaction Stated Complaint: POSSIBLE ALLERGIC REACTION Time Seen by Provider: 05/24/17 23:52 Notes: Patient is a 51-year-old female comes emergency department for chief complaint of possible medication allergy or side effects. She states that she was discharged on Tuesday from [facility] after she had been admitted for a "pelvic infection", she states she was given IV antibiotics there and then discharged home on doxycycline and Flagyl, states she has not been running fevers, she states earlier she felt nauseated and threw up after taking her medication, tonight she felt a tingling sensation in her body and extremities after taking the doxycycline, she states she also has a rash on her back. She denies difficulty breathing or swallowing, facial swelling. She denies any current symptoms, states she currently feels fine. TRAVEL OUTSIDE OF THE [place] IN LAST 30 DAYS: No - Related Data Allergies/Adverse Reactions: No Known Allergies Allergy (Unverified 05/18/17 15:06) Past Medical History - General Information source: Patient - Social History Smoking Status: Never Smoker Frequency of alcohol use: None Drug Abuse: None Lives with: Family Family History: Reviewed & Not Pertinent Patient has suicidal ideation: No Patient has homicidal ideation: No Endocrine Medical History: Denies: Hx Diabetes Mellitus Type 1, Hx Diabetes Mellitus Type 2 Renal/ Medical History: Denies: Hx Peritoneal Dialysis Past Surgical History: Reports: Hx Tubal Ligation, Other - surgery for ectopic ("minutes with burst blood vessel") Review of Systems - Review of Systems Constitutional: No symptoms reported EENT: See HPI Cardiovascular: No symptoms reported Respiratory: No symptoms reported Gastrointestinal: See HPI Genitourinary: No symptoms reported Female Genitourinary: No symptoms reported Musculoskeletal: No symptoms reported Skin: See HPI Hematologic/Lymphatic: No symptoms reported Neurological/Psychological: No symptoms reported Physical Exam - Vital signs Vitals: Temp Pulse Resp BP Pulse Ox 98.6 F 82 19 138/79 H 95 05/24/17 23:04 05/24/17 23:04 05/24/17 23:04 05/24/17 23:04 05/24/17 23:04 Interpretation: Normal - General General appearance: Appears well, Alert In distress: None - HEENT Head: Normocephalic, Atraumatic Eyes: Normal Conjunctiva: Normal Extraocular movements intact: Yes Eyelashes: Normal Pupils: PERRL Nasal: Normal Mouth/Lips: Normal Mucous membranes: Normal Pharynx: Normal. No: Uvular edema, Potential airway comprom. Neck: Normal - Respiratory Respiratory status: No respiratory distress Chest status: Nontender Breath sounds: Normal. No: Decreased air movement, Wheezing Chest palpation: Normal - Cardiovascular Rhythm: Regular. No: Tachycardia Heart sounds: Normal auscultation, S1 appreciated, S2 appreciated Murmur: No - Abdominal Inspection: Normal Distension: No distension Bowel sounds: Normal Tenderness: Nontender Organomegaly: No organomegaly - Back Back: Normal, Nontender. No: Tender - Extremities General upper extremity: Normal inspection, Nontender, Normal ROM, Normal strength General lower extremity: Normal inspection, Nontender, Normal ROM, Normal strength - Neurological Neuro grossly intact: Yes Cognition: Normal Orientation: AAOx4 Vikki Coma Scale Eye Opening: Spontaneous Vikki Coma Scale Verbal: Oriented Vikki Coma Scale Motor: Obeys Commands [place] Coma Scale Total: 15 Speech: Normal Motor strength normal: LUE, RUE, LLE, RLE Sensory: Normal - Psychological Associated symptoms: Normal affect, Normal mood - Skin Skin Temperature: Warm Skin Moisture: Dry Skin Color: Normal Skin irregularity: other - There is very minimal erythema with a few scattered maculopapular irritated areas in the mid upper back, no hives, vesicles, bulla, induration, or fluctuance. Normal skin exam otherwise. Course - Re-evaluation Re-evalutation: Patient alert, well-appearing, has soft abdomen, clear lungs, normal oral pharyngeal exam, faint irritated appearing rash on the mid upper back which does not appear to be urticaria. Appears to be contact dermatitis, patient states she actually thinks it is from when she was sweating and running a fever and lying down in the bed. This does make sense. Patient also had diarrhea, felt nauseated and vomited after taking 1 of her medications earlier, probably Flagyl. Medication side effects but no overt allergic reactions noted. I discussed with patient, alternatives include Augmentin and clindamycin which are even more difficult on the bowel. After discussion decision was made to place patient on Zofran, have her take probiotics, and have her follow closely with her [employer]. Asymptomatic on my evaluation, unremarkable vital signs, well- appearing. Patient states satisfaction and agreement with this plan. - Vital Signs Vital signs: Temp Pulse Resp BP Pulse Ox 98.0 F 87 18 132/78 H 99 05/25/17 00:44 05/25/17 00:44 05/25/17 00:44 05/25/17 00:44 05/25/17 00:44 Discharge - Discharge Clinical Impression: Medication side effects Condition: Stable Disposition: HOME, SELF-CARE Additional Instructions: Your examination does not show any concerning abnormalities at this time. No evidence of allergic reaction is seen. For your symptoms take the Zofran if needed for nausea, it is possible the Flagyl is causing you nausea, you also are likely having diarrhea from the antibiotics. I recommend you take an [id number] probiotic supplement for this. Follow-up with your primary care appointment on Tuesday as planned. Return for any concerning symptoms including developing rash, swelling of your lips, mouth, tongue, throat, difficulty breathing, fever of 100.4 or greater, returned or worsening abdominal pain, or any other concerning symptoms. Prescriptions: Ondansetron [Zofran Odt 4 mg Tablet] 1 - 2 tab PO Q4H PRN #15 tab.rapdis PRN Reason: For Nausea/Vomiting Referrals: ANA GONZALEZ MD [Primary Care Provider] - Follow up as needed
[2017-05-25 00:46] VITALS: BP 132/78
== END 2017-05-25 00:44 | disposition home or self-care (01) ==
LOC: ER 22:47
DX: K52.1 Toxic gastroenteritis and colitis (principal); T50.905A Adverse effect of unspecified drugs, medicaments and biological substances, initial encounter; N73.9 Female pelvic inflammatory disease, unspecified; R21 Rash and other nonspecific skin eruption; R20.2 Paresthesia of skin
CPT/HCPCS: 99283